=== PATIENT | female | born 1955 | race Caucasian/White ===

== ENCOUNTER 2018-01-06 12:29 | Emergency (ER) | payer OTHER ==
[~2018-01-06] VITALS: Ht 165.1 cm; Wt 118.0 kg
[2018-01-06] MEDS ORDERED: NITROGLYCERIN 2% OINT 1 GM PKT TOP ONE (13:30)
[2018-01-06 13:56] LABS: BASOPHILS # (AUTO) 0.1 (0.0-0.1); EOSINOPHILS # (AUTO) 0.2 (0.0-0.4); HEMATOCRIT 38.1 % (34.2-44.1); HEMOGLOBIN 13.1 g/dL (12.0-16.0); LYMPHOCYTES # (AUTO) 1.6 (1.0-3.2); LYMPHOCYTES % 31.2 % (18.0-39.1); MEAN CORPUSCULAR HEMOGLOBIN 31.3 pg (28-32); MEAN CORPUSCULAR HGB CONC 34.4 g/dL (31-35); MEAN CORPUSCULAR VOLUME 90.9 fL (81-99); MONOCYTES # (AUTO) 0.4 (0.2-0.8); MONOCYTES % 8.7 % (4.4-11.3); NEUTROPHILS # (AUTO) 2.8 (2.1-6.9); NEUTROPHILS % 55.7 % (38.7-80.0); PLATELET COUNT 224 x10e3/uL (140-360); RED BLOOD COUNT 4.19 x10e6/uL (3.6-5.1); RED CELL DISTRIBUTION WIDTH 12.4 % (11.7-14.4)
[2018-01-06] MEDS ORDERED: MECLIZINE HCL 12.5 MG TAB PO ONE (14:30)
[2018-01-06] MEDS ORDERED: ASPIRIN 81 MG CHEW TAB PO ONE (15:00)
[2018-01-06 15:14] LABS: CREATINE KINASE 139 IU/L (29-168)
== END 2018-01-06 15:30 | disposition home or self-care (01) ==
LOC: FSED 12:29
DX: R07.89 Other chest pain (principal); H81.10 Benign paroxysmal vertigo, unspecified ear; I10 Essential (primary) hypertension; E78.5 Hyperlipidemia, unspecified; E03.9 Hypothyroidism, unspecified; E01.8 Other iodine-deficiency related thyroid disorders and allied conditions
CPT/HCPCS: 36415; 71046; 80053; 81003; 82550; 82553; 84484; 85025; 93005; 99284

== ENCOUNTER 2025-03-24 11:04 | Inpatient (IN) | payer MEDICARE, OTHER ==
[2025-03-24] VITALS (7 sets, daily range): BP systolic 118–126; BP diastolic 58–63; PULSE 92–100; RESP 18–20; TEMP 98.4–101.7; O2SAT 95–97
[~2025-03-24] VITALS: Ht 165.1 cm; Wt 108.6 kg
[2025-03-24] MEDS: ONDANSETRON HCL INJ 2MG/ML 2ML 2 MG/ML VIAL IV STA (12:08)
[2025-03-24] MEDS: FAMOTIDINE 20 MG/2 ML VIAL IV STA (12:08)
[2025-03-24] MEDS: SODIUM CHLORIDE 0.9% 1000ML 1,000 ML IV ONE (12:08)
[2025-03-24] MEDS ORDERED: SODIUM CHLORIDE 0.9% 1000ML 1,000 ML ONE (12:17)
[2025-03-24] MEDS: SODIUM CHLORIDE 0.9% 1000ML 1,710 ML IV SCH (12:27)
[2025-03-24] MEDS: ACETAMINOPHEN 325 MG TAB PO ONE (13:18)
[2025-03-24] MEDS: TRAMADOL HCL 50 MG TAB PO ONE (13:19)
[2025-03-24] MEDS ORDERED: ONDANSETRON HCL INJ 2MG/ML 2ML 2 MG/ML VIAL IV PRN ×2 (13:30→15:30)
[2025-03-24] MEDS ORDERED: LIDOCAINE 4% PATCH TP PRN (15:30)
[2025-03-24] MEDS ORDERED: BENZONATATE 100 MG CAP PO PRN (15:30)
[2025-03-24] MEDS ORDERED: ALBUTEROL/IPRATROPIUM 3 ML NEB NEB PRN (15:30)
[2025-03-24] MEDS ORDERED: DOCUSATE SODIUM 100 MG CAP PO PRN (15:30)
[2025-03-24] MEDS ORDERED: DEXTROSE 50% SYRINGE 50 ML IV PRN (15:30)
[2025-03-24] MEDS ORDERED: DIPHENHYDRAMINE HCL 25 MG CAP PO PRN (15:30)
[2025-03-24] MEDS ORDERED: POTASSIUM CHLORIDE 20 MEQ TAB CR PO PRN (15:30)
[2025-03-24] MEDS ORDERED: SIMETHICONE 80 MG CHEW PO PRN (15:30)
[2025-03-24] MEDS ORDERED: HYDRALAZINE HCL 20 MG/ML VIAL IV PRN (15:30)
[2025-03-24] MEDS: SODIUM CHLORIDE 0.9% 1000ML 1,000 ML IV SCH (16:38)
[2025-03-24] MEDS ORDERED: MELATONIN 5 MG TABLET PO PRN (21:00)
[2025-03-25] VITALS (9 sets, daily range): BP systolic 112–140; BP diastolic 54–82; PULSE 87–94; RESP 18–20; TEMP 97.9–100.4; O2SAT 94–98
[2025-03-25 05:49] LABS: BASOPHILS % 0.7 % (0.0-1.0); EOSINOPHILS % 0.2 % (0.0-6.0); LYMPHOCYTES % 4.2 % (18.0-39.1); MONOCYTES % 6.9 % (4.4-11.3); NEUTROPHILS % 87.5 % (38.7-80.0); RED CELL DISTRIBUTION WIDTH 12.5 % (11.7-14.4)
[2025-03-25 06:28] LABS: EST GLOMERULAR FILTRATION RATE 25.0 ML/MIN (>=60)
[2025-03-25] MEDS ORDERED: PANTOPRAZOLE SOD 40 MG TABEC PO SCH (07:30)
[2025-03-25 08:56] LABS: LYMPHOCYTES % (MANUAL) 5 % (19-48); MONOCYTES % (MANUAL) 9 % (3.4-9.0); NEUTROPHILS % (MANUAL) 86 % (40-74); PLATELET ESTIMATE ADEQUATE; PLATELET MORPHOLOGY COMMENT NORMAL
[2025-03-25] MEDS: ACETAMINOPHEN 325 MG TAB PO PRN (11:10)
[2025-03-25] MEDS: LACTULOSE SYRUP 20 GM/30 ML UDC PO SCH (17:29)
[2025-03-26 08:00] VITALS: BP 128/54; PULSE 87; RESP 22; TEMP 98.6; O2SAT 98
[2025-03-26 08:18] LABS: BASOPHILS % 0.2 % (0.0-1.0); EOSINOPHILS % 1.1 % (0.0-6.0); LYMPHOCYTES % 5.2 % (18.0-39.1); MONOCYTES % 10.1 % (4.4-11.3); NEUTROPHILS % 82.6 % (38.7-80.0); RED CELL DISTRIBUTION WIDTH 12.4 % (11.7-14.4)
[2025-03-26 08:46] LABS: EST GLOMERULAR FILTRATION RATE 21.0 ML/MIN (>=60)
[2025-03-26 09:00] VITALS: BP 128/54; PULSE 87; RESP 22; TEMP 98.6; O2SAT 98
[2025-03-26 13:02] VITALS: BP 149/87; PULSE 87; RESP 19; TEMP 99.9; O2SAT 95
[2025-03-26 16:00] VITALS: BP 141/78; PULSE 84; RESP 18; TEMP 99.9; O2SAT 95
[2025-03-26 17:18] LABS: LEUKOCYTE ESTERASE ,URINE SMALL (NEGATIVE); PROTEIN,URINE DIPSTICK 2+ (NEGATIVE); URINE UROBILINOGEN 0.2 mg/dL (0.2 - 1)
[2025-03-26 17:49] LABS: EPITHELIAL CELLS,URINE MODERATE /LPF; WBC,URINE (MAN) >50 /HPF (0-5)
[2025-03-26] MEDS ORDERED: ATORVASTATIN CA10 MG PO (18:07)
[2025-03-26] MEDS ORDERED: LOSARTAN POTAS100 MG PO (18:07)
[2025-03-26] MEDS ORDERED: SYNTHROID100 MCG PO (18:07)
[2025-03-26] MEDS ORDERED: LEXAPRO10 MG PO (18:07)
[2025-03-26] MEDS: ENOXAPARIN SOD INJ 40 MG/0.4 ML SYR SC SCH (18:11)
[2025-03-26 19:58] LABS: EOSINOPHIL SMEAR,URINE NONE SEEN (NONE SEEN)
[2025-03-26 20:00] VITALS: BP 149/103; PULSE 85; RESP 18; TEMP 99.4; O2SAT 95
[2025-03-27] VITALS (8 sets, daily range): BP systolic 140–160; BP diastolic 77–98; PULSE 76–86; RESP 17–18; TEMP 97.5–101.3; O2SAT 96–100
[2025-03-27 06:44] LABS: BASOPHILS % 0.4 % (0.0-1.0); EOSINOPHILS % 1.4 % (0.0-6.0); LYMPHOCYTES % 7.1 % (18.0-39.1); MONOCYTES % 10.6 % (4.4-11.3); NEUTROPHILS % 76.2 % (38.7-80.0); RED CELL DISTRIBUTION WIDTH 12.8 % (11.7-14.4)
[2025-03-27 07:24] LABS: EST GLOMERULAR FILTRATION RATE 28.0 ML/MIN (>=60)
[2025-03-27] MEDS: ESCITALOPRAM OXALATE 10 MG TAB PO SCH (08:54)
[2025-03-27] MEDS: ATORVASTATIN 10 MG TAB PO SCH (08:54)
[2025-03-27] MEDS: LOSARTAN POTASSIUM 100 MG TAB PO SCH (08:55)
[2025-03-27] MEDS: LEVOTHYROXINE SODIUM 75 MCG TAB PO SCH (10:11)
[2025-03-27] MEDS: FUROSEMIDE INJ 10 MG/ML 4 ML VIAL IV ONE (14:29)
[2025-03-28] VITALS (12 sets, daily range): BP systolic 146–157; BP diastolic 79–94; PULSE 71–79; RESP 18–22; TEMP 97.3–99.2; O2SAT 97–100
[2025-03-28] MEDS ORDERED: LEVOTHYROXINE SODIUM 75 MCG TAB PO SCH (06:00)
[2025-03-28 06:41] LABS: BASOPHILS % 0.8 % (0.0-1.0); EOSINOPHILS % 1.7 % (0.0-6.0); LYMPHOCYTES % 7.4 % (18.0-39.1); MONOCYTES % 9.5 % (4.4-11.3); NEUTROPHILS % 74.0 % (38.7-80.0); RED CELL DISTRIBUTION WIDTH 12.8 % (11.7-14.4)
[2025-03-28 07:09] LABS: % IRON SATURATION 15 % (15-50)
[2025-03-28 07:45] LABS: EST GLOMERULAR FILTRATION RATE 30.0 ML/MIN (>=60)
[2025-03-28] MEDS: CEFTRIAXONE 2 GM in SODIUM CHLORIDE 0.9% 100 ML IV SCH (10:26)
[2025-03-28] MEDS: POTASSIUM CHLORIDE 20 MEQ TAB CR PO ONE (16:59)
[2025-03-28] MEDS: SODIUM CHLORIDE 0.9% 1000ML 1,000 ML IV SCH (17:01)
[2025-03-29 03:03] VITALS: BP 153/88; PULSE 69; RESP 18; TEMP 97.4; O2SAT 98
[2025-03-29 06:12] VITALS: PULSE 87; RESP 20; O2SAT 96
[2025-03-29 06:49] LABS: BASOPHILS % 0.5 % (0.0-1.0); EOSINOPHILS % 1.9 % (0.0-6.0); LYMPHOCYTES % 10.2 % (18.0-39.1); MONOCYTES % 8.1 % (4.4-11.3); NEUTROPHILS % 72.6 % (38.7-80.0); RED CELL DISTRIBUTION WIDTH 13.2 % (11.7-14.4)
[2025-03-29 07:44] LABS: EST GLOMERULAR FILTRATION RATE 35.0 ML/MIN (>=60)
[2025-03-29 09:29] VITALS: BP 163/88; PULSE 64; RESP 20; TEMP 98; O2SAT 98
[2025-03-29] MEDS: IRON SUCROSE 100 MG in SODIUM CHLORIDE 0.9% 100 ML IV SCH (09:55)
[2025-03-29] MEDS: CYANOCOBALAMIN INJ 1,000 MCG/ML VIAL IM SCH (09:56)
[2025-03-29 11:12] VITALS: BP 163/88; PULSE 64; RESP 20; TEMP 98; O2SAT 98
[2025-03-29 11:58] LABS: BAND NEUTROPHILS % (MANUAL) 3 %; LYMPHOCYTES % (MANUAL) 14 % (19-48); MONOCYTES % (MANUAL) 4 % (3.4-9.0); NEUTROPHILS % (MANUAL) 79 % (40-74); PLATELET ESTIMATE ADEQUATE; PLATELET MORPHOLOGY COMMENT NORMAL
[2025-03-29 15:36] VITALS: BP 144/85; PULSE 67; RESP 20; TEMP 98.6; O2SAT 100
[2025-03-29 15:38] VITALS: BP 163/88; PULSE 71; RESP 20; TEMP 98.3; O2SAT 100
== END 2025-03-29 16:40 | disposition home or self-care (01) | DRG 871 ==
LOC: FSED 11:09 → ERHOLD 13:24 → MED/SURG3 14:51
PROVIDERS: ADMIT Internal Medicine; ATTEND Internal Medicine
PROC: 3E0333Z Introduction of Anti-inflammatory into Peripheral Vein, Percutaneous Approach (ICD-10-PCS; principal; 2025-03-24)
DX: A41.51 Sepsis due to Escherichia coli [E. coli] (principal); K57.93 Diverticulitis of intestine, part unspecified, without perforation or abscess with bleeding; N17.0 Acute kidney failure with tubular necrosis; N39.0 Urinary tract infection, site not specified; N12 Tubulo-interstitial nephritis, not specified as acute or chronic; I10 Essential (primary) hypertension; E89.0 Postprocedural hypothyroidism; E78.5 Hyperlipidemia, unspecified; M54.9 Dorsalgia, unspecified; R11.2 Nausea with vomiting, unspecified; E66.9 Obesity, unspecified; Z68.39 Body mass index [BMI] 39.0-39.9, adult; Z79.890 Hormone replacement therapy; Z85.850 Personal history of malignant neoplasm of thyroid; Z88.1 Allergy status to other antibiotic agents; Z88.5 Allergy status to narcotic agent
CPT/HCPCS: 36415; 71045; 74176; 76770; 80048; 80053; 81001; 81003; 81015; 82550; 82607; 82746; 83540; 83605; 83690; 84466; 85025; 85045; 87040; 87071; 87086; 87186; 87205; 94799; 96374; 96375; 99284; J0696; J1308; J1650; J1756; J1938; J2185; J2405; J2470; J2543; J3420; J7030; J7050